=== PATIENT | male | born 1965 | race African-American/Black ===

== ENCOUNTER 2020-09-07 06:58 | Observation (INO) ==
[2020-09-07 07:42] LABS: Basophils % 0.2 % (0.0-0.8); Eosinophils # 0.1 10*3/uL (0.0-0.87); Eosinophils % 1.2 % (0.00-10.9); Hematocrit 34.4 VOL% (42.0-52.0); Hemoglobin 10.8 GM/DL (14.0-18.0); Immature Granulocytes % 0.4 %; Immature Granulocytes Absolute 0.04 #; Lymphocytes # 0.4 10*3/uL (1.4-4.0); Lymphocytes % 4.1 % (21.2-54.2); Mean Corpuscular HGB Conc 31.4 GM/DL (32-36); Mean Corpuscular Volume 91.7 FL (87-102); Monocytes % 6.1 % (1.7-12.7); NRBC # 0.02 10*3/uL; Platelet Count 142 T/CUMM (130-400); Red Blood Count 3.75 MC/CUMM (3.8-5.5); Red Cell Distribution Width 21.3 % (9.3-17.3); White Blood Count 9.4 T/CUMM (4-12)
[2020-09-07 08:04] LABS: Albumin 3.5 G/DL (3.4-5.0); Bilirubin,Total 0.6 MG/DL (0.2-1.0); Calcium 9.4 MG/DL (8.5-10.1); Osmolality,Calculated 306.2 MOS/KG (273-304); Total Protein 8.6 G/DL (6.4-8.2)
[2020-09-07 08:07] LABS: Potassium 6.5 MMOL/L (3.5-5.1)
[2020-09-07] MEDS ORDERED: SODIUM BICARBONATE 50 MEQ/50 ML VIAL IV STA (08:21)
[2020-09-07] MEDS ORDERED: INSULIN REGULAR 100 UNIT/ML IV STA (08:21)
[2020-09-07] MEDS ORDERED: DEXTROSE 50% 25 GM/50 ML VIAL IV STA (08:21)
[2020-09-07] MEDS ORDERED: hydrALAZINE 20 MG/1 ML VIAL IV STA (08:21)
[2020-09-07 08:37] LABS: Anisocytosis 2+; Band Neutrophils 6 % (0-10); Hypochromasia Slight; Lymphocytes 5 % (20-55); Macrocytosis 1+; Nucleated Red Blood Cells 1 (0-5); Platelet Estimate Adequate; Segmented Neutrophils 82 % (50-85); Total Cells Counted 100
[2020-09-07] MEDS ORDERED: hydrALAZINE 20 MG/1 ML VIAL IV PRN (08:48)
[2020-09-07] MEDS ORDERED: ONDANSETRON 4 MG/2 ML VIAL IV PRN (08:48)
[2020-09-07] MEDS ORDERED: DEXTROSE 50% 25 GM/50 ML VIAL IV PRN (08:48)
[2020-09-07] MEDS ORDERED: ACETAMINOPHEN 325 MG TABLET PO PRN (08:48)
[2020-09-07] MEDS ORDERED: ALBUTEROL/IPRATROPIUM 3 ML NEB RESP TX PRN (08:48)
[2020-09-07] MEDS ORDERED: GLUCAGON 1 MG VIAL IM PRN (08:48)
[2020-09-07] MEDS ORDERED: DOCUSATE SODIUM 100 MG CAPSULE PO PRN (08:48)
[2020-09-07] MEDS: amLODIPine 10 MG TABLET PO SCH (10:15)
[2020-09-07] MEDS: CALCIUM ACETATE 667 MG CAPSULE PO SCH ×2 (10:16→21:20)
[2020-09-07] MEDS: INSULIN NPH/REGULAR 70/30 100 UNIT/ML SUBCUT SCH (10:34)
[2020-09-07] MEDS: PANTOPRAZOLE 40 MG TABLET PO SCH (10:34)
[2020-09-07] MEDS: HEPARIN 5,000 UNIT/1 ML VIAL SUBCUT SCH ×2 (11:55→21:19)
[2020-09-07] MEDS: atenoloL 50 MG TABLET PO SCH (11:56)
[2020-09-07] MEDS ORDERED: SODIUM POLYSTYRENE SULFATE 15 GM/60 ML BOTTLE PO ONE (13:00)
[2020-09-07] MEDS: INSULIN LISPRO 100 UNIT/ML SUBCUT SCH ×3 (14:00→21:18)
[2020-09-07] MEDS ORDERED: INSULIN NPH/REGULAR 70/30 100 UNIT/ML SUBCUT SCH (17:00)
[2020-09-07] MEDS: BRIMONIDINE/TIMOLOL OPH SOLN 5 ML BOTTLE BOTH EYES SCH ×2 (17:12→21:19)
[2020-09-07] MEDS ORDERED: SIMVASTATIN 10 MG TABLET PO SCH (21:00)
[2020-09-08 05:24] LABS: Basophils % 0.4 % (0.0-0.8); Eosinophils # 0.1 10*3/uL (0.0-0.87); Eosinophils % 1.3 % (0.00-10.9); Hematocrit 29.6 VOL% (42.0-52.0); Immature Granulocytes % 0.4 %; Immature Granulocytes Absolute 0.02 #; Lymphocytes # 0.6 10*3/uL (1.4-4.0); Lymphocytes % 12.2 % (21.2-54.2); Mean Corpuscular HGB Conc 31.4 GM/DL (32-36); Mean Corpuscular Volume 91.6 FL (87-102); Monocytes % 10.6 % (1.7-12.7); NRBC # 0.02 10*3/uL; Neutrophils % 75.1 % (38.7-73.9); Platelet Count 138 T/CUMM (130-400); Red Blood Count 3.23 MC/CUMM (3.8-5.5); Red Cell Distribution Width 20.8 % (9.3-17.3)
[2020-09-08 05:32] LABS: White Blood Count 5.3 T/CUMM (4-12)
[2020-09-08 05:33] LABS: Hemoglobin 9.3 GM/DL (14.0-18.0)
[2020-09-08 06:07] LABS: Hypochromasia 1+; Microcytosis 1+; Polychromasia Slight
[2020-09-08 06:07] LABS: Bilirubin,Total 1.2 MG/DL (0.2-1.0); Calcium 9.4 MG/DL (8.5-10.1); Osmolality,Calculated 293.1 MOS/KG (273-304); Potassium 5.3 MMOL/L (3.5-5.1); Total Protein 7.2 G/DL (6.4-8.2)
[2020-09-08 06:08] LABS: Platelet Estimate Adequate
[2020-09-08] MEDS: CALCIUM ACETATE 667 MG CAPSULE PO SCH (09:40)
[2020-09-08] MEDS: amLODIPine 10 MG TABLET PO SCH (09:40)
[2020-09-08] MEDS: INSULIN NPH/REGULAR 70/30 100 UNIT/ML SUBCUT SCH (09:40)
[2020-09-08] MEDS: atenoloL 50 MG TABLET PO SCH (09:40)
[2020-09-08] MEDS: BRIMONIDINE/TIMOLOL OPH SOLN 5 ML BOTTLE BOTH EYES SCH (09:41)
[2020-09-08] MEDS: HEPARIN 5,000 UNIT/1 ML VIAL SUBCUT SCH (09:41)
[2020-09-08] MEDS: PANTOPRAZOLE 40 MG TABLET PO SCH (09:41)
[2020-09-08] MEDS: INSULIN LISPRO 100 UNIT/ML SUBCUT SCH ×2 (10:08→11:49)
[2020-09-08 12:01] VITALS: BP 183/77
== END 2020-09-08 17:54 | disposition home or self-care (01) ==
LOC: EDBD → EDUNIT# → N.ED 06:58 → N.EDINP 06:58 → N.5E 09:24
PROVIDERS: ADMIT Internal Medicine; ATTEND Internal Medicine